=== PATIENT | male | born 1975 | race Caucasian/White ===

== ENCOUNTER 2023-03-29 19:31 | Outpatient (OUT) | payer BC, SELFPAY | END 2023-03-29 19:32 | disposition home or self-care (01) | LOC: SLEEP 19:32 | PROVIDERS: PCP Internal Medicine Gastroenterology; Visit Provider Internal Medicine Gastroenterology | DX: G47.33 Obstructive sleep apnea (adult) (pediatric) (principal) | CPT/HCPCS: 95811 ==

== ENCOUNTER 2024-03-18 15:26 | Emergency (ER) | payer BC, SELFPAY ==
[2024-03-18 15:39] VITALS: BP 173/106; PULSE 81; TEMP 36.8; O2SAT 97; BMI 39.1
--- NOTE | 2024-03-18 16:33 | ED_ITS ---
HPI HPI - Extremity Injury (Upper) General Chief Complaint: Skin/Abscess/Foreign Body Stated Complaint: laceration Time Seen by Provider: 03/18/24 16:33 Source: patient Mode of arrival: walk-in History of Present Illness HPI narrative: This patient here with a laceration to his nondominant left thumb. He was working on a home project with a grinding wheel that got away from him. He has a laceration across the dorsal surface of his left thumb. There is no other injury. Bleeding has been controlled. He is not on any anti-'s. He is not on any antibiotics. He states he has allergies to erythromycin/azithromycin. Related Data Allergies Allergy/AdvReac Type Severity Reaction Status Date / Time azithromycin Allergy Severe Chills Verified 03/18/24 15:45 zolpidem [From Ambien] Allergy Severe Confusion Verified 03/18/24 15:45 Opioid HPI Opioid Management Most Recent Pain and Opioid Data: No Data to Display Exam Narrative Exam Narrative: Clinical examination showed initial blood pressure to be modestly elevated we will recheck. Problem focused examination shows a transverse laceration over the dorsal aspect of his left thumb at the IP joint. It is consistent with a grinding injury with some scarred blackened tissue on the edges of the wound. He is able to extend the digit with good strength. Sensation is intact Procedure note as below Constitutional Vital Signs, click to edit/add: Last Vital Signs Temp 98.2 F 03/18/24 15:39 Pulse 81 03/18/24 15:39 Resp 18 03/18/24 15:39 BP 173/106 H 03/18/24 15:39 Pulse Ox 97 03/18/24 15:39 O2 Del Method Room Air 03/18/24 15:39 Course Vital Signs Vital signs: Vital Signs Temperature 98.2 F 03/18/24 15:39 Pulse Rate 81 03/18/24 15:39 Respiratory Rate 18 03/18/24 15:39 Blood Pressure 173/106 H 03/18/24 15:39 Pulse Oximetry 97 03/18/24 15:39 Oxygen Delivery Method Room Air 03/18/24 15:39 Temperature 98.2 F 03/18/24 15:39 Pulse Rate 81 03/18/24 15:39 Respiratory Rate 18 03/18/24 15:39 Blood Pressure 173/106 H 03/18/24 15:39 Pulse Oximetry 97 03/18/24 15:39 Oxygen Delivery Method Room Air 03/18/24 15:39 MDM - Extremity Injury (Upper) MDM Narrative Medical decision making narrative: Procedure note after lidocaine 1% anesthesia with epinephrine the wound was sterilely prepped and draped in usual fashion. A [place] drain was obtained to achieve hemostasis. After this was done the wound was probed and there is no residual foreign bodies. I did demonstrate to the patient that there appears to be approximately 30% thickness laceration of his extensor tendon on that thumb despite having that laceration he has excellent functional capability to extend the thumb. There was sharp debridement some of the devitalized tissue and then the wound was closed with seven 4-0 Prolene sutures. We had an extensive discussion about the need for follow-up. His tendon function is good but there is an injury to this tendon. He will be placed on antibiotics a splint will be applied to the area stitches to be out in 10 days. X-ray images will be done for completeness for him to take to [facility] Discharge Plan Discharge Stand Alone Forms: Work/School Release, Portal Instructions Chief Complaint: Skin/Abscess/Foreign Body Clinical Impression: Laceration of left thumb with complication Patient Disposition: Home, Self-Care Time of Disposition Decision: 17:30 Print Language: Tajik Additional Instructions: Keflex/follow-up [facility] orthopedics in 7 to 10 days. Stitches out 10 days. Wear splint at all times Referrals: RYAN FIGUEROA [Primary Care Provider] - 1 week
[2024-03-18] MEDS: LIDOCAINE HCL 2%-EPINEPHRINE 1:200,000 20 ML MDV INJ (17:17)
[2024-03-18] MEDS: CEPHALEXIN 500 MG CAPSULE PO (17:19)
--- NOTE | 2024-03-18 17:27 | XR_ITS ---
The [address] [address] Patient Name: MACARENA WASHINGTON MRN: [id number] date: 1975 Sex: M Assigned Patient Location: ED.MAIN Current Patient Location: Accession/Order Number: [id number] Exam Date: 03/18/2024 17:33 Report Date: 03/18/2024 18:37 At the request of: ZULEYMA SEGOVIA Procedure: XR hand LT min 3V IMAGES REVIEWED: XR hand LT min 3V COMPARISON: None available. CLINICAL INDICATION: Laceration FINDINGS/IMPRESSION: No radiopaque foreign bodies seen in the soft tissues. No evidence of acute osseous abnormality of the left hand. Mild degenerative change first IP and first CMC joints. Chondrocalcinosis of the ulnar wrist. Mild first digit soft tissue swelling. Electronically authenticated by: LESLY HODGES Date: 03/18/2024 18:37
[2024-03-18 17:35] VITALS: BP 150/105
[2024-03-18 18:07] VITALS: BP 150/95
== END 2024-03-18 18:09 | disposition home or self-care (01) ==
PROVIDERS: Emergency Provider Emergency Medicine Emergency Medical Services; PCP Internal Medicine Gastroenterology
DX: S56.322A Laceration of extensor or abductor muscles, fascia and tendons of left thumb at forearm level, initial encounter (principal); W29.8XXA Contact with other powered hand tools and household machinery, initial encounter
CPT/HCPCS: 12001; 73130; 99283